=== PATIENT | female | born 1985 | race Caucasian/White ===

== ENCOUNTER 2022-12-09 10:09 | Emergency (ER) | payer OTHER ==
[2022-12-09] MEDS ORDERED: Dexamethasone 10 MG/ML VIAL ONE (12:46)
== END 2022-12-09 13:10 | disposition home or self-care (01) ==
LOC: CSHERS 10:09
DX: J03.90 Acute tonsillitis, unspecified (principal); Z87.891 Personal history of nicotine dependence
CPT/HCPCS: 87081; 87430; 99283; J1100

== ENCOUNTER 2023-01-31 12:09 | Emergency (ER) | payer OTHER, BC ==
[2023-01-31] MEDS ORDERED: Ketorolac Tromethamine 30 MG/ML VIAL ONE (13:04)
[2023-01-31] MEDS ORDERED: Dexamethasone 10 MG/ML VIAL ONE (13:04)
[2023-01-31] MEDS ORDERED: Acetaminophen 500 MG TAB ONE (13:05)
[2023-01-31] MEDS ORDERED: Amoxicillin/Potassium Clav 875 MG TAB ONE (13:05)
[2023-01-31 13:31] LABS: SARS-CoV-2 NAA Rapid Test Not Detected (NotDetected)
== END 2023-01-31 14:32 | disposition home or self-care (01) ==
LOC: CSHERS 12:09
DX: J02.0 Streptococcal pharyngitis (principal); Z87.891 Personal history of nicotine dependence; Z20.822 Contact with and (suspected) exposure to COVID-19
CPT/HCPCS: 87081; 87430; 96372; 99283; J1100; J1885

== ENCOUNTER 2024-05-27 10:50 | Emergency (ER) | payer OTHER, BC ==
[2024-05-27 11:32] LABS: #Basophils Less than 0.03 10x3/uL (0.0-0.2); #Eosinophils Less than 0.03 10x3/uL (0.0-0.5); #Monocytes 0.38 10x3/uL (0.0-1.1); #Neutrophils 1.83 10x3/uL (1.5-8.4); %Basophils 0.5 % (0.0-2.0); %Eosinophils 0.5 % (0.0-6.0); %Lymphocytes 38.1 % (18.0-47.0); %Monocytes 10.4 % (0.0-10.0); %Neutrophils 50.2 % (40.0-75.0); Hematocrit 33.4 % (34.9-44.5); Hemoglobin 11.3 g/dL (12.0-15.5); Mean Corpuscular HGB CONC 33.8 g/dL (32.0-36.0); Mean Corpuscular Hemoglobin 28.9 pg (27.0-33.0); Mean Corpuscular Volume 85.4 fL (81.6-98.3); Mean Platelet Volume 11.2 fL (7.4-10.4); Platelet Count 164 10x3/uL (150-450); RBC Distribution Width 12.1 % (11.5-14.5); Red Blood Cell (RBC) Count 3.91 10x6/uL (3.90-5.03); White Blood Cell (WBC) Count 3.65 10x3/uL (3.5-10.5)
[2024-05-27 11:59] LABS: ALT (SGPT) 19 U/L (Less than 34); AST (SGOT) 23 U/L (11-34); Albumin 4.5 g/dL (3.1-4.5); Alkaline Phosphatase 57 U/L (40-110); Anion Gap 12 mmol/L (10-20); BUN (Urea Nitrogen) 8 mg/dL (7.0-18.7); Bilirubin, Total 0.3 mg/dL (0.3-1.2); Calc. Creatinine Clearance 0 mL/min (70-130); Calcium 9.1 mg/dL (7.8-10.44); Carbon Dioxide 21 mmol/L (22-29); Chloride 108 mmol/L (98-107); Estimated GFR 113; Globulin 2.7 g/dL (2.4-3.5); Glucose 93 mg/dL (70-105); Protein, Total 7.2 g/dL (6.0-8.3); Sodium 137 mmol/L (136-145)
[2024-05-27 12:05] LABS: Troponin I Less than 0.010 ng/mL (< 0.028)
== END 2024-05-27 12:42 | disposition home or self-care (01) ==
LOC: CSHERS 10:50
DX: R07.89 Other chest pain (principal); Z87.891 Personal history of nicotine dependence
CPT/HCPCS: 36415; 71045; 80053; 84484; 85025; 85379; 93005